=== PATIENT | female | born 1975 | race Caucasian/White ===

== ENCOUNTER 2020-06-10 13:03 | Emergency (ER) | payer OTHER, SELFPAY ==
[2020-06-10 13:09] VITALS: BP 186/110; PULSE 116; RESP 18; TEMP 36.1; O2SAT 99
--- NOTE | 2020-06-10 13:12 | ED.SKABFB ---
HPI - Skin/Abscess/Foreign Bdy <Magaly Coello PA-C - Last Filed: 06/10/20 23:07> General Chief complaint: Ear Stated complaint: thinks shingles in her ear Time Seen by Provider: 06/10/20 13:11 Source: patient Mode of arrival: Ambulatory Limitations: no limitations History of Present Illness HPI narrative: 45-year-old woman with a history of shingles, rosacea, TMJ presents to the emergency department complaining of concern for shingles affecting her right ear. Patient states she has been having a sharp intense pain in her right ear has redness of her external ear and pain inside her ear canal for 3 days. She says it initially was itchy and then became painful. She had shingles 10 years ago during , at this was also in her right ear, she also had shingles 6 months ago diagnosed in her right ear both times her diagnosis was late and she states that she was told that antiviral therapy was not appropriate given duration of her symptoms. She has never been treated for shingles. She states that the sensation she is feeling in her ear is ?exactly the same as it was the previous times she was diagnosed with shingles. She does endorse a headache that she has had since this morning that is on the right side of her face and her yazidi and her ear. She also notes she has chronic jaw pain with opening and closing her mouth due to her TMJ however this has been more notably painful and uncomfortable on the right side for the last 3 days while she has had her ear symptoms. Patient states her rosacea affects her face and neck, notes that some reddish areas of skin on her neck are normal for her with her rosacea. She denies any recent illness, any nausea, vomiting, diarrhea, abdominal pain, chest pain, shortness of breath, sore throat, neck pain, vision changes, eye pain, hearing loss or any other symptoms. MD complaint: rash and other (R ear pain) Onset (ago): day(s) (3) Tetanus up to date: unsure Location: head (R ear) Severity: moderate Severity scale (1-10): 6 (as low as a 4 sometimes) Quality: sharp and pruritic Pain Consistency: constant Relieving factors: none Exacerbating factors: palpation Context: other (multiple shingles episodes in r ear previously) Associated symptoms: denies other symptoms Related Data Previous Rx's Medication Instructions Recorded hydrocodone-acetaminophen [Reasnor] 1 tab PO Q6H PRN #14 tab 06/10/20 valacyclovir 1,000 mg PO TID 7 Days #42 tab 06/10/20 Review of Systems <Magaly Coello PA-C - Last Filed: 06/10/20 23:07> Review of Systems Narrative: GENERAL: Denies chills, fatigue, malaise, fever, sweats. HEENT: Denies sinus pain, positive for ear pain, negative for sore throat, difficulty swallowing, dizziness. RESPIRATORY: Denies dyspnea, cough, wheezing, hemoptysis, sputum. CARDIOVASCULAR: Denies chest pain, palpitations, orthopnea, edema, GASTROINTESTINAL: Denies nausea, vomiting, abdominal pain, diarrhea, constipation, melena. : Denies dysuria, frequency, incontinence, hematuria, urinary retention. MUSCULOSKELETAL: denies weakness, joint pain, or bony pain SKIN: Endorses a redness of her right ear and tenderness her right ear, Denies other rash, skin lesions, or other NEUROLOGIC: Denies weakness, positive for headache, denies numbness, change in speech, confusion, seizures, incoordination. PSYCHIATRIC: No concerning psychosocial issues. 12 point review of systems is negative except for those stated above Exam <Magaly Coello PA-C - Last Filed: 06/10/20 23:07> Narrative Exam Narrative: GENERAL: 45 year old patient appears stated age. Well-nourished, well-developed patient, in mild distress. HEAD: Atraumatic. Normocephalic. EYES: The left ear, ear canal and tympanic membrane are unremarkable, the pain of the right ear is diffusely moderately erythematous and very slightly swollen, slightly tender to palpation , the right external ear canal has mild erythema, no appreciable swelling, no vesicles or rash noted, tympanic membrane is partially visualized due to cerumen, and is normal in appearance. Pupils equal round and reactive. Extraocular motions intact. No scleral icterus. No injection or drainage. ENT: Nose without bleeding, purulent drainage. Throat without erythema, tonsillar hypertrophy or exudate. Airway patent. NECK: Trachea midline. Non tender. CARDIOVASCULAR: Regular rate and rhythm without murmurs, gallops, or rubs. RESPIRATORY: Clear to auscultation. Breath sounds equal bilaterally. No wheezes, rales, or rhonchi. GASTROINTESTINAL: Abdomen soft, non-tender, nondistended. EXTREMITIES: No edema or joint tenderness. BACK: Nontender without deformity or crepitance. No flank tenderness. NEURO: AOx3. Cranial nerves are intact. SKIN: There are a few diffuse splotchy slightly erythematous areas of skin on the right side of the neck. Patient's face and neck and skin in general is generally pink with slightly increased erythema of the face and neck. No rash or erythema of visible areas Initial Vital Signs Initial Vital Signs: Vital Signs Temperature 97 F L 06/10/20 13:09 Pulse Rate 116 H 06/10/20 13:09 Respiratory Rate 18 06/10/20 13:09 Blood Pressure 186/110 H 06/10/20 13:09 Pulse Oximetry 99 06/10/20 13:09 Vital signs obtained later after patient was more relaxed, not anxious about COVID and being in the hospital were unremarkable. BP 138/83 HR 85 <Avtar Hodges DO - Last Filed: 06/13/20 19:01> Initial Vital Signs Initial Vital Signs: Vital Signs Temperature 97 F L 06/10/20 13:09 Pulse Rate 116 H 06/10/20 13:09 Respiratory Rate 18 06/10/20 13:09 Blood Pressure 186/110 H 06/10/20 13:09 Pulse Oximetry 99 06/10/20 13:09 Course <Magaly Coello PA-C - Last Filed: 06/10/20 23:07> Course Course Narrative: Patient and patient's history is very suggestive of shingles, exam is nonspecific as there is no evidence of vesicles, however I believe it may be early in the course. She does have an elevated blood pressure and heart rate on triage in the emergency department, the patient noted she is pretty anxious to be here and concerned about being in the healthcare setting and the risks of Covid. Notes she does not take any blood pressure medicines and she normally has a lower blood pressure. She denies any fevers chills or other symptoms concerning for acute infection, am checking basic labs however, plan to initiate antiviral therapy in the emergency department and have her continue as an outpatient. 14:10 Orders Ordered: Discontinued Medications Valacyclovir HCl (Valtrex) 1,000 mg PO NOW ONE Stop: 06/10/20 14:26 Last Admin: 06/10/20 14:37 Dose: 1,000 mg Documented by: NELLI Vital Signs Vital signs: Vital Signs - 8 hr 06/10/20 13:09 06/10/20 14:23 Temperature 97 F L Pulse Rate 116 H 85 Respiratory Rate 18 16 Blood Pressure 186/110 H 138/83 Pulse Oximetry 99 99 <Avtar Hodges DO - Last Filed: 06/13/20 19:01> Orders Ordered: Discontinued Medications Valacyclovir HCl (Valtrex) 1,000 mg PO NOW ONE Stop: 06/10/20 14:26 Last Admin: 06/10/20 14:37 Dose: 1,000 mg Documented by: NELLI Vital Signs Vital signs: Vital Signs - 8 hr 06/10/20 13:09 06/10/20 14:23 Temperature 97 F L Pulse Rate 116 H 85 Respiratory Rate 18 16 Blood Pressure 186/110 H 138/83 Pulse Oximetry 99 99 MDM - Skin/Abscess/Foreign Bdy <Magaly Coello PA-C - Last Filed: 06/10/20 23:07> Differential Diagnosis Differential diagnosis: Likely abscess of skin or subcutaneous tissue, viral exanthem, herpes zoster, cellulitis, eczema, insect bites and contact dermatitis Medical Records Attestation: I reviewed the patient's medical records. Lab Data Attestation: I reviewed the patient's lab results. Result diagrams: 06/10/20 13:55 06/10/20 13:55 Labs: Lab Results 06/10/20 06/10/20 Range/Units 13:55 13:55 WBC 5.9 (4.5-11.0) X10^3/uL RBC 4.00 (4.0-5.2) X10^6/uL Hgb 13.6 (12.0-16.0) g/dL Hct 40.7 (36-46) % MCV 101.7 H (80-100) fL MCH 33.9 (26-34) PG MCHC 33.4 (30-36) % RDW 12.4 (11.6-14.8) % Plt Count 224 (150-400) X10^3/uL Neut % (Auto) 54.1 (50-75) % Lymph % (Auto) 36.1 (25-40) % [place] % (Auto) 7.8 (3-14) % Eos % (Auto) 1.1 L (2-4) % Baso % (Auto) 0.9 (0-2) % Neut # (Auto) 3200 (9270-0401) /uL Lymph # (Auto) 2100 (3622-2567) /uL [place] # (Auto) 500 (0-900) /uL Eos # (Auto) 100 (0-450) /uL Baso # (Auto) 100 (0-100) /uL Sodium 137 (137-145) mmol/L Potassium 4.3 (3.4-5.1) mmol/L Chloride 102 (98-107) mmol/L Carbon Dioxide 30 (22-32) mmol/L BUN 21 H (7-17) mg/dL Creatinine 0.55 (0.52-1.04) mg/dL Estimated GFR > 60.0 (>60) mL/min BUN/Creatinine Ratio 38.2 H (6-22) Glucose 110 H (70-100) mg/dL Calcium 9.2 (8.4-10.2) mg/dL Total Bilirubin 0.7 (0.2-1.3) mg/dL AST 45 H (14-36) IU/L ALT 84 H (<35) IU/L Alkaline Phosphatase 69 (38-126) U/L Total Protein 7.5 (6.3-8.2) g/dL Albumin 4.6 (3.5-5.0) g/dL Globulin 2.9 (1.7-4.1) g/dL Albumin/Globulin Ratio 1.6 (1.0-2.8) MDM Narrative Medical decision making narrative: Well-appearing 45-year-old woman with a history of shingles presents to the emergency department complaining of shingles. Patient has never received antibiotic treatment. Symptoms are consistent with her previous experiences, no clear vesicles noted on exam however given the nature of her pain, and her history, did initiate antiviral therapy as she is now nearly 72 hours in to her symptoms and I do not feel it is appropriate to wait due only to be nonspecific nature of her skin symptoms. Low suspicion that this is due to another acute process such as a cellulitis. Initial vitals were elevated blood pressure and heart rate however patient was anxious upon arrival to the emergency department and repeat vitals were unremarkable. Patient has no other concerning symptoms, tolerated initial dose of antiviral well. Also provided pain medicine prescription. Advised to follow-up with primary care provider. Emergency return precautions provided, all questions answered. <Avtar Hodges DO - Last Filed: 06/13/20 19:01> Lab Data Labs: Lab Results 06/10/20 06/10/20 Range/Units 13:55 13:55 WBC 5.9 (4.5-11.0) X10^3/uL RBC 4.00 (4.0-5.2) X10^6/uL Hgb 13.6 (12.0-16.0) g/dL Hct 40.7 (36-46) % MCV 101.7 H (80-100) fL MCH 33.9 (26-34) PG MCHC 33.4 (30-36) % RDW 12.4 (11.6-14.8) % Plt Count 224 (150-400) X10^3/uL Neut % (Auto) 54.1 (50-75) % Lymph % (Auto) 36.1 (25-40) % [place] % (Auto) 7.8 (3-14) % Eos % (Auto) 1.1 L (2-4) % Baso % (Auto) 0.9 (0-2) % Neut # (Auto) 3200 (1829-3142) /uL Lymph # (Auto) 2100 (3295-0302) /uL [place] # (Auto) 500 (0-900) /uL Eos # (Auto) 100 (0-450) /uL Baso # (Auto) 100 (0-100) /uL Sodium 137 (137-145) mmol/L Potassium 4.3 (3.4-5.1) mmol/L Chloride 102 (98-107) mmol/L Carbon Dioxide 30 (22-32) mmol/L BUN 21 H (7-17) mg/dL Creatinine 0.55 (0.52-1.04) mg/dL Estimated GFR > 60.0 (>60) mL/min BUN/Creatinine Ratio 38.2 H (6-22) Glucose 110 H (70-100) mg/dL Calcium 9.2 (8.4-10.2) mg/dL Total Bilirubin 0.7 (0.2-1.3) mg/dL AST 45 H (14-36) IU/L ALT 84 H (<35) IU/L Alkaline Phosphatase 69 (38-126) U/L Total Protein 7.5 (6.3-8.2) g/dL Albumin 4.6 (3.5-5.0) g/dL Globulin 2.9 (1.7-4.1) g/dL Albumin/Globulin Ratio 1.6 (1.0-2.8) Discharge Plan Departure Patient Disposition: Home Clinical Impression: Herpes zoster oticus Acute ear pain Qualifiers: Laterality: right Qualified Code(s): H92.01 - Otalgia, right ear Discharge Date/Time: 06/10/20 14:43 Instructions: DI for Shingles Activity Restrictions/Additional Instructions: Thank you for letting us be part of your care in the emergency department today. We did initiate treatment for you for shingles in the emergency department, and I have prescribed a prescription for both pain medicine and the antiviral medication for you to fill and continue to take. Please take the antivirals for 7 days. You appear to be early in the course of the disease and there is some possibility that your symptoms could be related to a different condition, so please monitor carefully at home and pay attention to any new or changing symptoms and do not hesitate to return to the emergency department or seek medical care should these arise. There is no evidence of an emergent or life threatening illness at this time, but follow up with your doctor in 1-2 days is recommended nonetheless to continue to rule out serious underlying causes of your symptoms. Please call the office for an appointment. Please return to the Emergency Department for any worsening or persistent symptoms. Please take medications as directed. Prescriptions: New valacyclovir 500 mg tablet 1,000 mg PO TID 7 Days Qty: 42 RF: 0 hydrocodone-acetaminophen [Reasnor] 5-325 mg tablet 1 tab PO Q6H PRN (Reason: pain) Qty: 14 RF: 0 Referrals: Elaine Pimentel ARNP [Primary Care Provider] - <Avtar Hodges DO - Last Filed: 06/13/20 19:01> [facility] Attestation: Dr Hodges Co-Sign Statement: I was available for consultation during this patient's emergency department visit. This chart is signed by myself for administrative purposes only. I did not have direct contact with this patient during this visit. They were seen independently by the APC.
[2020-06-10 14:04] LABS: Add Manual Diff / Slide Review NO; Basophils Absolute Auto 100 /uL (0-100); Basophils Percent Auto 0.9 % (0-2); Eosinophils Absolute Auto 100 /uL (0-450); Eosinophils Percent Auto 1.1 % (2-4); Hematocrit 40.7 % (36-46); Hemoglobin 13.6 g/dL (12.0-16.0); Lymphocytes Absolute Auto 2100 /uL (1100-4500); Lymphocytes Percent Auto 36.1 % (25-40); Mean Corpuscular HGB Conc 33.4 % (30-36); Mean Corpuscular Hemoglobin 33.9 PG (26-34); Mean Corpuscular Volume 101.7 fL (80-100); Monocytes Absolute Auto 500 /uL (0-900); Monocytes Percent Auto 7.8 % (3-14); Neutrophils Absolute Auto 3200 /uL (1500-7000); Neutrophils Percent Auto 54.1 % (50-75); Platelet Count 224 X10^3/uL (150-400); Red Cell Distribution Width 12.4 % (11.6-14.8); White Blood Cell Count 5.9 X10^3/uL (4.5-11.0)
[2020-06-10 14:18] LABS: Alanine Aminotransferase 84 IU/L (<35); Albumin 4.6 g/dL (3.5-5.0); Albumin Globulin Ratio 1.6 (1.0-2.8); Alkaline Phosphatase 69 U/L (38-126); Aspartate Aminotransferase 45 IU/L (14-36); BUN Creatinine Ratio 38.2 (6-22); Bilirubin Total 0.7 mg/dL (0.2-1.3); Blood Urea Nitrogen 21 mg/dL (7-17); Calcium 9.2 mg/dL (8.4-10.2); Carbon Dioxide 30 mmol/L (22-32); Chloride 102 mmol/L (98-107); Estimated Glomerular Filt Rate > 60.0 mL/min (>60); Globulin 2.9 g/dL (1.7-4.1); Glucose 110 mg/dL (70-100); HEMOLYSIS < 15 (0-50); Potassium 4.3 mmol/L (3.4-5.1); Sodium 137 mmol/L (137-145); Total Protein 7.5 g/dL (6.3-8.2)
[2020-06-10 14:23] VITALS: BP 138/83; PULSE 85; RESP 16; O2SAT 99
[2020-06-10] MEDS: valACYclovir 500 MG TABLET 1000 MG PO (14:37)
== END 2020-06-10 14:43 | disposition home or self-care (01) ==
PROVIDERS: Emergency Provider Student in an Organized Health Care Education/Training Program; PCP Nurse Practitioner Family
DX: B02.21 Postherpetic geniculate ganglionitis (principal); H92.01 Otalgia, right ear
CPT/HCPCS: 36415; 80053; 85025; 99283

== ENCOUNTER 2020-08-14 11:55 | Emergency (ER) | payer OTHER, SELFPAY ==
[2020-08-14 12:01] VITALS: BP 152/84; PULSE 114; RESP 18; TEMP 37.2; O2SAT 100
[2020-08-14 12:54] LABS: COVID19 -Nasal RAPID Negative (Negative)
--- NOTE | 2020-08-14 13:21 | DI.RAD.S_ITS ---
PROCEDURE: XR CHEST 2V INDICATIONS: sob, fever, cough TECHNIQUE: 2 views of the chest were acquired. COMPARISON: None. FINDINGS: Surgical changes and devices: Cholecystectomy clips. Lungs and pleura: Lungs are clear. No pleural effusions or pneumothorax. Mediastinum: Mediastinal contours are normal. Heart size is normal. Bones and chest wall: No suspicious bony abnormalities. Soft tissues appear unremarkable. IMPRESSION: No acute cardiopulmonary abnormality. Dictated by: Will Sanchez M.D. on 08/14/2020 at 12:50 Approved by: Will Sanchez M.D. on 08/14/2020 at 12:51
--- NOTE | 2020-08-14 13:27 | ED.URI ---
HPI - URI/Sore Throat <SALOME Damon - Last Filed: 08/14/20 18:02> General Chief Complaint: Upper Respiratory Symptoms Stated Complaint: Sick Since Saturday, COVID Symtoms Time Seen by Provider: 08/14/20 13:02 Source: patient Mode of arrival: Ambulatory Limitations: no limitations History of Present Illness HPI Narrative: The patient is a 45-year-old female nonsmoker with history of walking pneumonia and shingles who presents with a chief complaint of not feeling well since Saturday. She states that she developed sinus pressure, nausea and loose stools on Saturday. Since she has had low-grade fevers. She has also had muscle aches chills, ear pain and pressure, nausea with no vomiting. She does not know any specific exposures, though notes that her children go to school. She feels shortness of breath winded doing any activity including speaking since Saturday. Related Data Previous Rx's Medication Instructions Recorded hydrocodone-acetaminophen [Jackson] 1 tab PO Q6H PRN #14 tab 06/10/20 ketorolac 10 mg PO TID PRN #15 tab 08/14/20 ondansetron 4 mg PO Q6H PRN #20 tab 08/14/20 Review of Systems <SALOME Damon - Last Filed: 08/14/20 18:02> Review of Systems Narrative: GENERAL: See HPI HEENT: See HPI RESPIRATORY: See HPI CARDIOVASCULAR: See HPI GASTROINTESTINAL: See HPI : Denies dysuria, frequency, incontinence, hematuria, urinary retention. MUSCULOSKELETAL: denies weakness, joint pain, or bony pain SKIN: Denies rash, skin lesions, or other NEUROLOGIC: Denies weakness, headache, numbness, change in speech, confusion, seizures, incoordination. PSYCHIATRIC: No concerning psychosocial issues. 12 point review of systems is negative except for those stated above Patient History <SLAOME Damon - Last Filed: 08/14/20 18:02> Social History Smoking Status: Never smoker Smoking Status: Never smoker alcohol intake frequency: 0-2 drinks per day Substance Use Type: does not use Exam <SALOME Damon - Last Filed: 08/14/20 18:02> Narrative Exam Narrative: GENERAL: This is a well-nourished, well-developed patient, in no acute distress HEAD: Atraumatic. Normocephalic. No temporal or scalp tenderness. EYES: Pupils equal round and reactive. Extraocular motions intact. No scleral icterus. No injection or drainage. ENT: Nose without bleeding, purulent drainage or septal hematoma. Throat without erythema, tonsillar hypertrophy or exudate. Uvula midline. Airway patent. Moist mucous membranes noted. Bilateral TMs pearly matson. NECK: Trachea midline. No JVD or lymphadenopathy. Supple, nontender, no meningeal signs. CARDIOVASCULAR: Regular rate and rhythm RESPIRATORY: Clear to auscultation. Breath sounds equal bilaterally. No wheezes, rales, or rhonchi. No cough. No increased respiratory effort. No accessory muscle use. GASTROINTESTINAL: Abdomen soft, non-tender, nondistended. No hepato-splenomegaly, or palpable masses. No guarding. Active bowel sounds all 4 quadrants. EXTREMITIES: No clubbing, cyanosis, or edema. No joint tenderness, effusion, or edema noted. BACK: Nontender without deformity or crepitance. No flank tenderness. NEURO: AOx3. SKIN: No rash or erythema on visible skin Initial Vital Signs Initial Vital Signs: Vital Signs Temperature 98.9 F 08/14/20 12:01 Pulse Rate 114 H 08/14/20 12:01 Respiratory Rate 18 08/14/20 12:01 Blood Pressure 152/84 H 08/14/20 12:01 Pulse Oximetry 100 08/14/20 12:01 <Elizabeth De La Torre MD - Last Filed: 08/16/20 07:29> Initial Vital Signs Initial Vital Signs: Vital Signs Temperature 98.9 F 08/14/20 12:01 Pulse Rate 114 H 08/14/20 12:01 Respiratory Rate 18 08/14/20 12:01 Blood Pressure 152/84 H 08/14/20 12:01 Pulse Oximetry 100 08/14/20 12:01 Scores <SALOME Damon - Last Filed: 08/14/20 18:02> GCS [place] coma scale eye opening: Spontaneous [place] coma scale verbal response: Orientated [place] coma scale motor response: Obey commands [place] coma scale total score: 15 HEART Score Heart Score history: Slightly Suspicious Heart Score EKG: Normal Heart Score Age: 45-64 years old Heart Score risk factors: No known risk factors Heart Score troponin: < or = to normal limit Heart Score Total: 1 PERC Score Age greater than or equal to 50 years: No Heart rate greater than or equal to 100 bpm: Yes Room Air O2 Sat less than 95%: No Unilateral leg swelling: No Recent trauma or surgery: No Hemoptysis: No Prior PE or DVT: No Hormone Use: No Total PERC Score: 1 qSOFA Altered Mental Status (GCS <15): No Respiratory rate greater than/equal to 22: No Systolic blood pressure less than or equal to 100: No qSOFA Total: 0 0-1 Not High Risk 1-3 High risk Course <SALOME Damon - Last Filed: 08/14/20 18:02> Orders Ordered: Discontinued Medications Acetaminophen (Acetaminophen 325 Mg Tablet) 975 mg PO NOW ONE Stop: 08/14/20 16:05 Last Admin: 08/14/20 16:16 Dose: 975 mg Documented by: MAXIM Sodium Chloride (Normal Saline 0.9%) 1,000 mls @ 1,000 mls/hr IV BOLUS ONE Stop: 08/14/20 14:20 Last Infusion: 08/14/20 15:05 Dose: 0 mls/hr Documented by: Admin: 08/14/20 14:01 Dose: 1,000 mls/hr Documented by: PANKAJ Ketorolac Tromethamine (Ketorolac 60 Mg/2 Ml Vial) 30 mg IV NOW ONE Stop: 08/14/20 16:05 Last Admin: 08/14/20 16:17 Dose: 30 mg Documented by: MAXIM Ondansetron HCl (Ondansetron 4 Mg/2 Ml Inj) 4 mg IV NOW ONE Stop: 08/14/20 13:26 Last Admin: 08/14/20 14:01 Dose: 4 mg Documented by: PANKAJ Vital Signs Vital signs: Vital Signs - 8 hr 08/14/20 12:01 08/14/20 15:49 08/14/20 17:18 Temperature 98.9 F Pulse Rate 114 H 90 87 Respiratory Rate 18 16 18 Blood Pressure 152/84 H 117/76 112/70 Pulse Oximetry 100 100 96 <Elizabeth De La Torre MD - Last Filed: 08/16/20 07:29> Orders Ordered: Discontinued Medications Acetaminophen (Acetaminophen 325 Mg Tablet) 975 mg PO NOW ONE Stop: 08/14/20 16:05 Last Admin: 08/14/20 16:16 Dose: 975 mg Documented by: MAXIM Sodium Chloride (Normal Saline 0.9%) 1,000 mls @ 1,000 mls/hr IV BOLUS ONE Stop: 08/14/20 14:20 Last Infusion: 08/14/20 15:05 Dose: 0 mls/hr Documented by: Admin: 08/14/20 14:01 Dose: 1,000 mls/hr Documented by: PANKAJ Ketorolac Tromethamine (Ketorolac 60 Mg/2 Ml Vial) 30 mg IV NOW ONE Stop: 08/14/20 16:05 Last Admin: 08/14/20 16:17 Dose: 30 mg Documented by: MAXIM Ondansetron HCl (Ondansetron 4 Mg/2 Ml Inj) 4 mg IV NOW ONE Stop: 08/14/20 13:26 Last Admin: 08/14/20 14:01 Dose: 4 mg Documented by: PANKAJ Vital Signs Vital signs: Vital Signs - 8 hr 08/14/20 12:01 08/14/20 15:49 08/14/20 17:18 Temperature 98.9 F Pulse Rate 114 H 90 87 Respiratory Rate 18 16 18 Blood Pressure 152/84 H 117/76 112/70 Pulse Oximetry 100 100 96 MDM - URI/Sore Throat <DARLENE Damon- - Last Filed: 08/14/20 18:02> Differential Diagnosis Differential diagnosis: Likely upper respiratory infection, otitis media and viral infection Lab Data Attestation: I reviewed the patient's lab results. Result diagrams: 08/14/20 13:56 08/14/20 13:56 Labs: Lab Results 08/14/20 08/14/20 08/14/20 Range/Units 12:10 13:56 13:56 WBC 5.6 (4.5-11.0) X10^3/uL RBC 4.07 (4.0-5.2) X10^6/uL Hgb 13.8 (12.0-16.0) g/dL Hct 41.2 (36-46) % MCV 101.1 H (80-100) fL MCH 33.8 (26-34) PG MCHC 33.5 (30-36) % RDW 13.1 (11.6-14.8) % Plt Count 232 (150-400) X10^3/uL Neut % (Auto) 62.8 (50-75) % Lymph % (Auto) 25.3 (25-40) % [place] % (Auto) 9.7 (3-14) % Eos % (Auto) 1.2 L (2-4) % Baso % (Auto) 1.0 (0-2) % Neut # (Auto) 3500 (5856-1953) /uL Lymph # (Auto) 1400 (2642-6342) /uL [place] # (Auto) 500 (0-900) /uL Eos # (Auto) 100 (0-450) /uL Baso # (Auto) 100 (0-100) /uL D-Dimer (<230) ng/mL Sodium 135 L (137-145) mmol/L Potassium 4.2 (3.4-5.1) mmol/L Chloride 103 (98-107) mmol/L Carbon Dioxide 24 (22-32) mmol/L BUN 14 (7-17) mg/dL Creatinine 0.44 L (0.52-1.04) mg/dL Estimated GFR > 60.0 (>60) mL/min BUN/Creatinine Ratio 31.8 H (6-22) Glucose 89 (70-100) mg/dL Lactate (0.7-2.1) mmol/L Calcium 9.2 (8.4-10.2) mg/dL Magnesium 2.2 (1.6-2.3) mg/dL Total Bilirubin 0.8 (0.2-1.3) mg/dL AST 61 H (14-36) IU/L ALT 97 H (<35) IU/L Alkaline Phosphatase 68 (38-126) U/L Total Creatine Kinase 36 (30-135) U/L CK-MB (CK-2) TNP CK-MB (CK-2) Rel Index TNP Troponin I < 0.012 (0.01-0.034) ng/mL NT-Pro-B Natriuret Pep (<125) pg/mL Total Protein 7.6 (6.3-8.2) g/dL Albumin 4.3 (3.5-5.0) g/dL Globulin 3.3 (1.7-4.1) g/dL Albumin/Globulin Ratio 1.3 (1.0-2.8) COVID-19 PCR Negative (Negative) Influenza A (RT-PCR) (NEGATIVE) Influenza B (RT-PCR) (NEGATIVE) 08/14/20 08/14/20 08/14/20 Range/Units 13:56 13:56 13:56 WBC (4.5-11.0) X10^3/uL RBC (4.0-5.2) X10^6/uL Hgb (12.0-16.0) g/dL Hct (36-46) % MCV (80-100) fL MCH (26-34) PG MCHC (30-36) % RDW (11.6-14.8) % Plt Count (150-400) X10^3/uL Neut % (Auto) (50-75) % Lymph % (Auto) (25-40) % [place] % (Auto) (3-14) % Eos % (Auto) (2-4) % Baso % (Auto) (0-2) % Neut # (Auto) (8080-0416) /uL Lymph # (Auto) (4632-5949) /uL [place] # (Auto) (0-900) /uL Eos # (Auto) (0-450) /uL Baso # (Auto) (0-100) /uL D-Dimer < 200 (<230) ng/mL Sodium (137-145) mmol/L Potassium (3.4-5.1) mmol/L Chloride (98-107) mmol/L Carbon Dioxide (22-32) mmol/L BUN (7-17) mg/dL Creatinine (0.52-1.04) mg/dL Estimated GFR (>60) mL/min BUN/Creatinine Ratio (6-22) Glucose (70-100) mg/dL Lactate 0.9 (0.7-2.1) mmol/L Calcium (8.4-10.2) mg/dL Magnesium (1.6-2.3) mg/dL Total Bilirubin (0.2-1.3) mg/dL AST (14-36) IU/L ALT (<35) IU/L Alkaline Phosphatase (38-126) U/L Total Creatine Kinase (30-135) U/L CK-MB (CK-2) CK-MB (CK-2) Rel Index Troponin I (0.01-0.034) ng/mL NT-Pro-B Natriuret Pep 38 (<125) pg/mL Total Protein (6.3-8.2) g/dL Albumin (3.5-5.0) g/dL Globulin (1.7-4.1) g/dL Albumin/Globulin Ratio (1.0-2.8) COVID-19 PCR (Negative) Influenza A (RT-PCR) (NEGATIVE) Influenza B (RT-PCR) (NEGATIVE) 08/14/20 Range/Units 14:00 WBC (4.5-11.0) X10^3/uL RBC (4.0-5.2) X10^6/uL Hgb (12.0-16.0) g/dL Hct (36-46) % MCV (80-100) fL MCH (26-34) PG MCHC (30-36) % RDW (11.6-14.8) % Plt Count (150-400) X10^3/uL Neut % (Auto) (50-75) % Lymph % (Auto) (25-40) % [place] % (Auto) (3-14) % Eos % (Auto) (2-4) % Baso % (Auto) (0-2) % Neut # (Auto) (4268-3007) /uL Lymph # (Auto) (4186-4670) /uL [place] # (Auto) (0-900) /uL Eos # (Auto) (0-450) /uL Baso # (Auto) (0-100) /uL D-Dimer (<230) ng/mL Sodium (137-145) mmol/L Potassium (3.4-5.1) mmol/L Chloride (98-107) mmol/L Carbon Dioxide (22-32) mmol/L BUN (7-17) mg/dL Creatinine (0.52-1.04) mg/dL Estimated GFR (>60) mL/min BUN/Creatinine Ratio (6-22) Glucose (70-100) mg/dL Lactate (0.7-2.1) mmol/L Calcium (8.4-10.2) mg/dL Magnesium (1.6-2.3) mg/dL Total Bilirubin (0.2-1.3) mg/dL AST (14-36) IU/L ALT (<35) IU/L Alkaline Phosphatase (38-126) U/L Total Creatine Kinase (30-135) U/L CK-MB (CK-2) CK-MB (CK-2) Rel Index Troponin I (0.01-0.034) ng/mL NT-Pro-B Natriuret Pep (<125) pg/mL Total Protein (6.3-8.2) g/dL Albumin (3.5-5.0) g/dL Globulin (1.7-4.1) g/dL Albumin/Globulin Ratio (1.0-2.8) COVID-19 PCR (Negative) Influenza A (RT-PCR) Flu a negative (NEGATIVE) Influenza B (RT-PCR) Flu b negative (NEGATIVE) Point of Care Testing Test Results Negative Urine Dip Bedside Urine Glucose Negative Bedside Urine Bilirubin - Negative Bedside Urine Ketone ++ 40 Urine Specific [place] 1.030 Bedside Urine Occult Blood - Negative Bedside Urine pH 6.0 Bedside Urine Protein - Negative Bedside Urine Urobilinogen - Negative Bedside Urine Nitrite - Negative Bedside Urine Leukocytes - Negative Esterase Imaging Data Chest x-ray: Radiologist's Impression: [address] [place] [id number] ReportSigned Patient: Mindy Ortiz [facility]#: [id number]: 1975Acct:[id number]/Sex: 45 / FDate of Service: 08/14/20Loc: EDAccession Number: [id number] Procedure: XR chest 2V Ordering Provider: Saray Noble- PROCEDURE: XR CHEST 2V INDICATIONS: sob, fever, cough TECHNIQUE: 2 views of the chest were acquired. COMPARISON: None. FINDINGS: Surgical changes and devices: Cholecystectomy clips. Lungs and pleura: Lungs are clear. No pleural effusions or pneumothorax. Mediastinum: Mediastinal contours are normal. Heart size is normal. Bones and chest wall: No suspicious bony abnormalities. Soft tissues appear unremarkable. IMPRESSION: No acute cardiopulmonary abnormality. Dictated by: Will Sanchez M.D. on 08/14/2020 at 12:50 Approved by: Will Sanchez M.D. on 08/14/2020 at 12:51 ECG Data Attestation: I personally reviewed and interpreted this ECG as follows: MDM Narrative Medical decision making narrative: The patient is a 45-year-old female who presents with multiple complaints including general fatigue and muscle aches over the past week or so, as well as occasional cough but, loose stools. She was unable to give a stool sample during her stay in the emergency department. She tests negative for coronavirus. She tests negative for influenza. Pneumonia was consider, so chest x-ray was ordered and this resulted negative. Given her shortness of breath, EKG was done which was within normal limits. Given her initial tachycardia, D-dimer was ordered and this resulted negative. The patient feels improved after the above-stated therapies. I gave her prescriptions of ondansetron and ketorolac. She has no pain to abdominal palpation, so we will hold off on further imaging at this point time. Encouraged rest, [id number] medications as needed and able and close follow-up with primary care provider. The patient questioned if she could have bacterial sinusitis, but I discussed that the duration of her symptoms has been short enough of that this would be viral at this point. Discussed follow-up with primary care provider in the next few days, coming back to the ER for any acute concerns. Patient has no questions or concerns upon discharge and states understanding return precautions as well as follow-up care. <Elizabeth De La Torre MD - Last Filed: 08/16/20 07:29> Lab Data Labs: Lab Results 08/14/20 08/14/20 08/14/20 Range/Units 12:10 13:56 13:56 WBC 5.6 (4.5-11.0) X10^3/uL RBC 4.07 (4.0-5.2) X10^6/uL Hgb 13.8 (12.0-16.0) g/dL Hct 41.2 (36-46) % MCV 101.1 H (80-100) fL MCH 33.8 (26-34) PG MCHC 33.5 (30-36) % RDW 13.1 (11.6-14.8) % Plt Count 232 (150-400) X10^3/uL Neut % (Auto) 62.8 (50-75) % Lymph % (Auto) 25.3 (25-40) % [place] % (Auto) 9.7 (3-14) % Eos % (Auto) 1.2 L (2-4) % Baso % (Auto) 1.0 (0-2) % Neut # (Auto) 3500 (4128-2056) /uL Lymph # (Auto) 1400 (4633-4901) /uL [place] # (Auto) 500 (0-900) /uL Eos # (Auto) 100 (0-450) /uL Baso # (Auto) 100 (0-100) /uL D-Dimer (<230) ng/mL Sodium 135 L (137-145) mmol/L Potassium 4.2 (3.4-5.1) mmol/L Chloride 103 (98-107) mmol/L Carbon Dioxide 24 (22-32) mmol/L BUN 14 (7-17) mg/dL Creatinine 0.44 L (0.52-1.04) mg/dL Estimated GFR > 60.0 (>60) mL/min BUN/Creatinine Ratio 31.8 H (6-22) Glucose 89 (70-100) mg/dL Lactate (0.7-2.1) mmol/L Calcium 9.2 (8.4-10.2) mg/dL Magnesium 2.2 (1.6-2.3) mg/dL Total Bilirubin 0.8 (0.2-1.3) mg/dL AST 61 H (14-36) IU/L ALT 97 H (<35) IU/L Alkaline Phosphatase 68 (38-126) U/L Total Creatine Kinase 36 (30-135) U/L CK-MB (CK-2) TNP CK-MB (CK-2) Rel Index TNP Troponin I < 0.012 (0.01-0.034) ng/mL NT-Pro-B Natriuret Pep (<125) pg/mL Total Protein 7.6 (6.3-8.2) g/dL Albumin 4.3 (3.5-5.0) g/dL Globulin 3.3 (1.7-4.1) g/dL Albumin/Globulin Ratio 1.3 (1.0-2.8) COVID-19 PCR Negative (Negative) Influenza A (RT-PCR) (NEGATIVE) Influenza B (RT-PCR) (NEGATIVE) 08/14/20 08/14/2008/14/20 Range/Units 13:56 13:56 13:56 WBC (4.5-11.0) X10^3/uL RBC (4.0-5.2) X10^6/uL Hgb (12.0-16.0) g/dL Hct (36-46) % MCV (80-100) fL MCH (26-34) PG MCHC (30-36) % RDW (11.6-14.8) % Plt Count (150-400) X10^3/uL Neut % (Auto) (50-75) % Lymph % (Auto) (25-40) % [place] % (Auto) (3-14) % Eos % (Auto) (2-4) % Baso % (Auto) (0-2) % Neut # (Auto) (3133-4170) /uL Lymph # (Auto) (4562-2937) /uL [place] # (Auto) (0-900) /uL Eos # (Auto) (0-450) /uL Baso # (Auto) (0-100) /uL D-Dimer < 200 (<230) ng/mL Sodium (137-145) mmol/L Potassium (3.4-5.1) mmol/L Chloride (98-107) mmol/L Carbon Dioxide (22-32) mmol/L BUN (7-17) mg/dL Creatinine (0.52-1.04) mg/dL Estimated GFR (>60) mL/min BUN/Creatinine Ratio (6-22) Glucose (70-100) mg/dL Lactate 0.9 (0.7-2.1) mmol/L Calcium (8.4-10.2) mg/dL Magnesium (1.6-2.3) mg/dL Total Bilirubin (0.2-1.3) mg/dL AST (14-36) IU/L ALT (<35) IU/L Alkaline Phosphatase (38-126) U/L Total Creatine Kinase (30-135) U/L CK-MB (CK-2) CK-MB (CK-2) Rel Index Troponin I (0.01-0.034) ng/mL NT-Pro-B Natriuret Pep 38 (<125) pg/mL Total Protein (6.3-8.2) g/dL Albumin (3.5-5.0) g/dL Globulin (1.7-4.1) g/dL Albumin/Globulin Ratio (1.0-2.8) COVID-19 PCR (Negative) Influenza A (RT-PCR) (NEGATIVE) Influenza B (RT-PCR) (NEGATIVE) 08/14/20 Range/Units 14:00 WBC (4.5-11.0) X10^3/uL RBC (4.0-5.2) X10^6/uL Hgb (12.0-16.0) g/dL Hct (36-46) % MCV (80-100) fL MCH (26-34) PG MCHC (30-36) % RDW (11.6-14.8) % Plt Count (150-400) X10^3/uL Neut % (Auto) (50-75) % Lymph % (Auto) (25-40) % [place] % (Auto) (3-14) % Eos % (Auto) (2-4) % Baso % (Auto) (0-2) % Neut # (Auto) (5806-3144) /uL Lymph # (Auto) (5914-6501) /uL [place] # (Auto) (0-900) /uL Eos # (Auto) (0-450) /uL Baso # (Auto) (0-100) /uL D-Dimer (<230) ng/mL Sodium (137-145) mmol/L Potassium (3.4-5.1) mmol/L Chloride (98-107) mmol/L Carbon Dioxide (22-32) mmol/L BUN (7-17) mg/dL Creatinine (0.52-1.04) mg/dL Estimated GFR (>60) mL/min BUN/Creatinine Ratio (6-22) Glucose (70-100) mg/dL Lactate (0.7-2.1) mmol/L Calcium (8.4-10.2) mg/dL Magnesium (1.6-2.3) mg/dL Total Bilirubin (0.2-1.3) mg/dL AST (14-36) IU/L ALT (<35) IU/L Alkaline Phosphatase (38-126) U/L Total Creatine Kinase (30-135) U/L CK-MB (CK-2) CK-MB (CK-2) Rel Index Troponin I (0.01-0.034) ng/mL NT-Pro-B Natriuret Pep (<125) pg/mL Total Protein (6.3-8.2) g/dL Albumin (3.5-5.0) g/dL Globulin (1.7-4.1) g/dL Albumin/Globulin Ratio (1.0-2.8) COVID-19 PCR (Negative) Influenza A (RT-PCR) Flu a negative (NEGATIVE) Influenza B (RT-PCR) Flu b negative (NEGATIVE) Point of Care Testing Test Results Negative Urine Dip Bedside Urine Glucose Negative Bedside Urine Bilirubin - Negative Bedside Urine Ketone ++ 40 Urine Specific [place] 1.030 Bedside Urine Occult Blood - Negative Bedside Urine pH 6.0 Bedside Urine Protein - Negative Bedside Urine Urobilinogen - Negative Bedside Urine Nitrite - Negative Bedside Urine Leukocytes - Negative Esterase Discharge Plan Departure Patient Disposition: Home Clinical Impression: Shortness of breath Upper respiratory infection Qualifiers: URI type: unspecified viral URI Qualified Code(s): J06.9 - Acute upper respiratory infection, unspecified Instructions: DI for Viral Upper Respiratory Infection -- Adult, DI for Shortness of Breath, How to Manage Shortness of Breath Activity Restrictions/Additional Instructions: Thank you for trusting us with your care today As discussed, you tested negative for coronavirus. Please be aware that these can result and false negatives, particularly if taken early in the course of the illness. You also tested negative for influenza a and influenza B. Here lab work resulted well, with good organ function. Your EKG looks good, and your chest x-ray has no signs of pneumonia I sent 2 prescriptions to the [facility] pharmacy. One is for nausea called ondansetron, in the other is for pain called ketorolac. I have given you a prescription of ketorolac or Toradol. This is an NSAID. Do not combine it with other NSAIDs such as Aleve or ibuprofen. This can be helpful for muscle aches and joint pain. I suggest taking it with some food, as it can irritate your stomach. As discussed, please follow-up with primary care provider in the next few days. Please come back to the emergency department for any acute concerns including concern of heart attack, stroke, shortness of breath etcetera Prescriptions: New ondansetron 4 mg tablet,disintegrating 4 mg PO Q6H PRN (Reason: nausea and vomiting) Qty: 20 RF: 0 ketorolac 10 mg tablet 10 mg PO TID PRN (Reason: pain) Qty: 15 RF: 0 No Action hydrocodone-acetaminophen [[place]] 5-325 mg tablet 1 tab PO Q6H PRN (Reason: pain) Qty: 14 RF: 0 Referrals: Elaine Pimentel ARNP [Primary Care Provider] - <Elizabeth De La Torre MD - Last Filed: 08/16/20 07:29> [facility] I was immediately available in the department for consultation throughout this patient's visit. I agree with documentation as above. Elizabeth De La Torre MD
[2020-08-14] MEDS: ONDANSETRON 4 MG/2 ML INJ IV (14:01)
[2020-08-14] MEDS: SODIUM CHLORIDE 0.9% 1,000 ML 1000 ML IV (14:01)
[2020-08-14 14:06] LABS: Add Manual Diff / Slide Review NO; Basophils Absolute Auto 100 /uL (0-100); Eosinophils Absolute Auto 100 /uL (0-450); Eosinophils Percent Auto 1.2 % (2-4); Hematocrit 41.2 % (36-46); Hemoglobin 13.8 g/dL (12.0-16.0); Lymphocytes Absolute Auto 1400 /uL (1100-4500); Lymphocytes Percent Auto 25.3 % (25-40); Mean Corpuscular HGB Conc 33.5 % (30-36); Mean Corpuscular Hemoglobin 33.8 PG (26-34); Mean Corpuscular Volume 101.1 fL (80-100); Monocytes Absolute Auto 500 /uL (0-900); Monocytes Percent Auto 9.7 % (3-14); Neutrophils Absolute Auto 3500 /uL (1500-7000); Neutrophils Percent Auto 62.8 % (50-75); Platelet Count 232 X10^3/uL (150-400); Red Blood Cell Count 4.07 X10^6/uL (4.0-5.2); Red Cell Distribution Width 13.1 % (11.6-14.8); White Blood Cell Count 5.6 X10^3/uL (4.5-11.0)
[2020-08-14 14:23] LABS: Lactate (Lactic Acid) 0.9 mmol/L (0.7-2.1)
[2020-08-14 14:24] LABS: Alanine Aminotransferase 97 IU/L (<35); Albumin 4.3 g/dL (3.5-5.0); Albumin Globulin Ratio 1.3 (1.0-2.8); Alkaline Phosphatase 68 U/L (38-126); Aspartate Aminotransferase 61 IU/L (14-36); BUN Creatinine Ratio 31.8 (6-22); Bilirubin Total 0.8 mg/dL (0.2-1.3); Blood Urea Nitrogen 14 mg/dL (7-17); Calcium 9.2 mg/dL (8.4-10.2); Carbon Dioxide 24 mmol/L (22-32); Chloride 103 mmol/L (98-107); Creatine Kinase 36 U/L (30-135); Estimated Glomerular Filt Rate > 60.0 mL/min (>60); Globulin 3.3 g/dL (1.7-4.1); Glucose 89 mg/dL (70-100); Magnesium 2.2 mg/dL (1.6-2.3); Potassium 4.2 mmol/L (3.4-5.1); Sodium 135 mmol/L (137-145); Total Protein 7.6 g/dL (6.3-8.2)
[2020-08-14 14:26] LABS: HEMOLYSIS 51 (0-50)
[2020-08-14 14:36] LABS: Troponin I < 0.012 ng/mL (0.01-0.034)
[2020-08-14 14:46] LABS: Influenza A - CEPHEID Flu A NEGATIVE (NEGATIVE); Influenza B - CEPHEID Flu B NEGATIVE (NEGATIVE)
[2020-08-14 14:55] LABS: NT-proBNP (BNP-Adult 18+) 38 pg/mL (<125)
[2020-08-14 15:49] VITALS: BP 117/76; PULSE 90; RESP 16; O2SAT 100
[2020-08-14] MEDS: ACETAMINOPHEN 325 MG TABLET 975 MG PO (16:16)
[2020-08-14] MEDS: KETOROLAC 60 MG/2 ML VIAL 30 MG IV (16:17)
[2020-08-14 16:20] LABS: D Dimer < 200 ng/mL (<230)
[2020-08-14 17:18] VITALS: BP 112/70; PULSE 87; RESP 18; O2SAT 96
== END 2020-08-14 17:19 | disposition home or self-care (01) ==
PROVIDERS: Emergency Medicine; Emergency Provider Nurse Practitioner Family; PCP Nurse Practitioner Family
DX: J06.9 Acute upper respiratory infection, unspecified (principal); R06.02 Shortness of breath; R05 Cough; R53.83 Other fatigue; R50.9 Fever, unspecified
CPT/HCPCS: 36415; 71046; 80053; 81003; 81025; 82550; 83605; 83735; 83880; 84484; 85025; 85379; 87502; 87635; 93005; 93010; 96361; 96374; 96375; 99281; 99284; J1885; J2405